=== PATIENT | male | born 1970 | race Caucasian/White ===

== ENCOUNTER 2022-11-17 08:28 | Emergency (ER) | payer BC, SELFPAY ==
[2022-11-17] VITALS (22 sets, daily range): BP systolic 122–126; BP diastolic 69–80; PULSE 42–54; RESP 11–22; TEMP 36.9; O2SAT 94–100
--- NOTE | 2022-11-17 08:30 | RT.EKG_ITS ---
APPROVED REPORT Exam: Resting ECG Reason for Exam: syncope Patient Location: E HR:47 bpm ECG Measurements Heart Rate 47 AXIS PA 173 P 51 QRSd 95 QRS 15 QT 473 T 46 QTc 419 Conclusion Sinus bradycardia...rate< 60
--- NOTE | 2022-11-17 09:00 | DI.CT_ITS ---
Exam(s) CT HEAD WO EXAM: CT HEAD WO CLINICAL HISTORY: syncope. TECHNIQUE: Imaging Protocol: Axial computed tomography images with coronal and sagittal reformatted images were created and reviewed COMPARISON: No exams were available for comparison FINDINGS: Ventricles and Extra axial spaces: Normal in size and morphology for the patient's age. There is so me asymmetry of the posterior horns of the lateral ventricles which appears to be within normal limit s of variation. Hemorrhage: None. Cerebral parenchyma: No evidence of acute infarct or mass. Midline shift: None. Brainstem/Cerebellum: Normal. Calvarium: Normal. Visualized Paranasal sinuses/Mastoids: Clear. Soft Tissues: Unremarkable. IMPRESSION: No acute intracranial process. Findings called to Matthew Smiley of the emergency department. RADIATION DOSE DELIVERED: Total DLP DATA REPOSITORY: All CT scans at this facility are submitted to the National Radiology Data Registry (NRDR) Dose Index Registry (DIR) with the [employer] ([employer]). RADIATION OPTIMIZATION: All CT scans at this facility use at least one of these dose optimization te chniques: automated exposure control; mA and/or kV adjustment per patient size (includes targeted exa ms where dose is matched to clinical indication); or iterative reconstruction.
--- NOTE | 2022-11-17 09:06 | ED.GENADUL_ITS ---
Discharge Plan Disposition Patient Disposition: Home Discharge Details Clinical Impression: Syncope due to orthostatic hypotension Primary Care Provider: None,None ED Provider: Hieu Smiley Discharge Instructions Instructions: Syncope (ED) Additional Instructions: Please continue to monitor symptoms and return immediately to the emergency department for any new or significant worsening of symptoms or further syncopal episodes. Your recent concussion and syncopal episode it is recommended that you follow-up with primary care provider especially if you do not see improvement over the next week. Referrals: Primary Care Provider [Outside] - 1 week Discharge Data Discharge Date/Time-TO BE ENTERED AT DEPARTURE: 11/17/22 13:17 Medical Decision Making Patient presenting to the emergency department for chief complaint of syncope. Patient reports that this morning he got up and went to the bathroom and had a slight headache and took some acetaminophen and laid back down. Patient then went to get back up and when he stood up he had a syncopal episode. Patient states 4 days ago he hit his head on a metal object at work and thought he was doing okay but was concerned for slight concussion. Patient states since the syncopal episode he has had some chest tightness and nausea. Patient does admit to camping this weekend and having multiple alcoholic drinks last night. Patient's only past medical history is Klinefelter syndrome. Physical exam is unremarkable, no neurodeficits, no focal findings, normal cardiac exam beyond noted bradycardia. Vital signs show no hypotension, normal respirations afebrile and O2 sat of 96% on room air. Please see physician interpretation for full interpretation of EKG but upon my review patient is in sinus bradycardia with no worrisome acute findings. We will continue to monitor Reviewed patient's labs which are unremarkable, negative D-dimer, nondetected negative troponin, normal TSH, unremarkable urinalysis. CT imaging of head showed no acute worrisome findings. Did have a slight question about an area in the right occipital but spoke also with Dr. Culp who reviewed images and also agreed no acute abnormality. Repeat troponin was also negative. Patient did have something to eat and drink and stated full resolution of headache and significant movement of chest discomfort along with no further dizziness or other symptoms. Given significantly improving symptoms with no return or worsening I do feel that this may have been an episode of orthostatic hypotension given that this occurred right after standing up with otherwise negative work-up. Will have patient monitor symptoms and follow-up as needed. After discussion of diagnosis and plan of care patient has no further needs, questions, or concerns and states clear understanding to return to the emergency department for any worsening symptoms. This documentation was generated using [employer] system, please disregard any oddities of phrase or misspellings. Imaging Data Radiologic Study: Imaging: X-Ray and CT Scan Radiologist's impression: Exam(s) PROCEDURE INFORMATION: Exam: CT Head Without Contrast Exam date and time: 11/17/2022 9:36 AM Age: 52 years old Clinical indication: Dizziness TECHNIQUE: Imaging protocol: Computed tomography of the head without contrast. Radiation optimization: All CT scans at this facility use at least one of these dose optimization techniques: automated exposure control; mA and/or kV adjustment per patient size (includes targeted exams where dose is matched to clinical indication); or iterative reconstruction. COMPARISON: No relevant prior studies available. FINDINGS: Brain: No intracranial extra-axial collection. No acute large territorial infarct. No acute intracranial hemorrhage. No midline shift. Cerebral ventricles: No ventriculomegaly. Paranasal sinuses: Visualized sinuses are unremarkable. No fluid levels. Mastoid air cells: Visualized mastoid air cells are well aerated. Bones/joints: Unremarkable. No acute fracture. Soft tissues: Unremarkable. Vasculature: Scattered atherosclerotic changes in the arterial vasculature. IMPRESSION: No acute intracranial process. ? Exam(s) PROCEDURE INFORMATION: Exam: XR Chest Exam date and time: 11/17/2022 11:41 AM Age: 52 years old Clinical indication: Other: Syncope TECHNIQUE: Imaging protocol: Radiologic exam of the chest. Views: 2 views. COMPARISON: No relevant prior studies available. FINDINGS: Lungs: Unremarkable. No consolidation. Pleural spaces: Unremarkable. No pleural effusion. No pneumothorax. Heart/Mediastinum: Unremarkable. No cardiomegaly. Bones/joints: Unremarkable. IMPRESSION: 1. ? Prominent heart and mediastinum are likely related to technique. 2. ? No acute pulmonary process. Lab Data Lab results reviewed: Yes I reviewed the patient's lab results. HPI General Mode of arrival: ambulatory . Date/Time Provider Initiated Documentation: 11/17/22 08:38 . Limitations to Documentation: no limitations . Information obtained by: patient, family and RN notes reviewed . History of Present Illness 52 year old M presents to the emergency department with the chief complaint of Syncope, described as moderate, Quality is described as aching, and is localized to the head. Patient reports no radiation. Patient started experiencing this minute(s) (30) and it has been constant. No relieving factors improve symptom(s), Other factors that worsen symptoms (Standing up) . Patient notes chest pain. General Stated Complaint: Dizzy/Sync WILMER: 3 Review of Systems Constitutional Constitutional: Denies chills, Denies fever(s), Reports headache(s) and Reports malaise Eyes Eyes: Denies change in vision ENT Ears, Nose, Mouth, and Throat: Reports headache(s) and Denies neck pain Cardiovascular Cardiovascular: Reports chest pain, Reports syncope, Denies rapid heart rate, Denies irregular heart rhythm and Denies dyspnea Respiratory Respiratory: Denies cough and Denies dyspnea Gastrointestinal Gastrointestinal: Denies abdominal pain, Reports nausea and Denies vomiting Musculoskeletal Musculoskeletal: Denies back pain and Denies neck pain Neurologic Neurologic: Reports as per HPI, Reports syncope, Reports headache(s), Denies localized weakness, Denies convulsions and Denies paresthesias PFSH All Active Problems (Updated 11/17/22 @ 13:05 by Hieu Smiley NP) Syncope due to orthostatic hypotension (Acute) Klinefelter syndrome (Acute) Social History Smoking/Tobacco Use Status: Never Smoking risk assessment performed?: Yes Drug use: Never Substance use type: does not use Exam Const General: cooperative, healthy appearing, no acute distress and well groomed Orientation: alert, awake and oriented x3 Limitations: mental status not altered HENMT Head: normal to inspection Ears: hearing grossly normal bilaterally and TM's normal bilaterally Mouth: oral mucosae normal and moist mucous membranes Throat: posterior oropharynx normal Eyes Visual Slater: normal visual slater by confrontation Alignment and Position: alignment normal Periorbital: periorbital findings normal Eyelids: eyelids normal Sclera: sclerae normal Cornea: corneas normal Pupils: PERRL EOM: EOM intact bilaterally Neck Neck: normal visual inspection, full ROM, no lymphadenopathy and no meningeal signs Carotids: normal carotid upstroke and no bruits Resp Effort & Inspection: normal respiratory effort and able to speak in complete sentences Auscultation: clear to auscultation bilaterally Cardio Jugular venous pressure: no JVD Palpation: normal PMI Rate: regular rate Rhythm: regular rhythm Heart Sounds: S1 normal and S2 normal Bruits: no carotid bruits Skin General skin exam: no rashes or lesions noted Neuro General: patient alert, patient awake, patient oriented x3, gait normal, tone normal, moves all extremities, CN's II-XI intact bilaterally and not confused Cognition: normal cognition Speech: speech normal Motor: muscle tone normal throughout, strength 5/5 throughout, no pronator drift, no movement abnormalities noted and no fasciculations Sensory Exam: no sensory deficits noted Coordination: [id number] test normal, Romberg test normal, Does not sway with eyes open, rapid alternating movement UE normal and rapid alternating movement LE normal Course Vital Signs Vital signs: Vital Signs Temperature 36.9 C 11/17/22 08:33 Pulse 54 L 11/17/22 08:33 Respiratory Rate 16 11/17/22 08:33 Blood Pressure 125/73 11/17/22 08:33 Pulse Oximetry 96 11/17/22 08:33 Temperature 36.9 C 11/17/22 08:33 Pulse 54 L 11/17/22 08:33 Respiratory Rate 18 11/17/22 08:50 Respiratory Effort Normal 11/17/22 08:56 Respiratory Depth Normal 11/17/22 08:50 Respiratory Pattern Normal 11/17/22 08:50 Blood Pressure 125/73 11/17/22 08:33 Pulse Oximetry 96 11/17/22 08:33
[2022-11-17 09:14] LABS: Abs Immature Grans 0.02 10^3/uL (0.0-0.06); Absolute Basophil Count 0.04 10^3/uL (0.0-0.2); Absolute Eosinophil Count 0.15 10^3/uL (0.0-0.7); Absolute Lymphocyte Count 1.82 10^3/uL (1.2-3.4); Absolute Monocyte Count 0.56 10^3/uL (0.1-0.8); Absolute Neutrophil Count 4.04 10^3/uL (1.2-6.7); Basophils % 0.6; Eosinophils % 2.3; HCT 44.3 % (40.0-50.0); HGB 15.1 g/dL (13.5-17.5); Immature Grans % 0.3; Lymphocytes % 27.5; MCH 31.2 pg (27.0-33.0); MCHC 34.1 % (32.0-36.0); MCV 92 fL (80-95); MPV 11.4 fL (8.0-11.0); Monocytes % 8.4; Neutrophils % 60.9; Platelet Count 202 10^3/uL (130-400); RBC 4.84 10^6/uL (4.36-5.78); RDW 12.7 % (11.8-14.1); RDW-SD 42.6 fL; WBC 6.63 10^3/uL (4.4-10.8)
[2022-11-17] MEDS: Normal Saline 1,000 ML 1000 ML IV (09:25)
[2022-11-17] MEDS: Ondansetron 4 MG/2 ML VIAL IVP (09:32)
[2022-11-17 09:38] LABS: ALT 40 U/L (16-63); AST 20 U/L (15-37); Albumin 3.8 g/dL (3.4-5.0); Alkaline Phosphatase 52 U/L (46-116); Anion Gap 6.7 mmol/L (3-11); BUN 18 mg/dL (7-18); Bilirubin, Total 0.3 mg/dL (0.2-1.0); CO2 28.3 mmol/L (21.0-32.0); Calcium 8.9 mg/dL (8.5-10.1); Chloride 106 mmol/L (98-107); Estimated GFR 90.56 (mL/min/1.73m2); Glucose 122 mg/dL (74-106); Magnesium 1.9 mg/dL (1.8-2.4); Potassium 4.2 mmol/L (3.5-5.1); Sodium 141 mmol/L (136-145); TSH 1.24 uIU/mL (0.36-3.74); Total Protein 7.2 g/dL (6.4-8.2); Troponin I < 50 ng/L (<or=60)
[2022-11-17 09:43] LABS: Bilirubin Negative (Negative); Blood Negative (Negative); Clarity Clear (Clear); Glucose Negative (Negative); Ketones Negative (Negative); Leukocyte Esterase Negative (Negative); Nitrite Negative (Negative); Urobilinogen 0.2 mg/dL (Up to 0.2); pH 5.5 (5-8)
--- NOTE | 2022-11-17 10:01 | DI.VRAD_ITS ---
PROCEDURE INFORMATION: Exam: CT Head Without Contrast Exam date and time: 11/17/2022 9:36 AM Age: 52 years old Clinical indication: Dizziness TECHNIQUE: Imaging protocol: Computed tomography of the head without contrast. Radiation optimization: All CT scans at this facility use at least one of these dose optimization techniques: automated exposure control; mA and/or kV adjustment per patient size (includes targeted exams where dose is matched to clinical indication); or iterative reconstruction. COMPARISON: No relevant prior studies available. FINDINGS: Brain: No intracranial extra-axial collection. No acute large territorial infarct. No acute intracranial hemorrhage. No midline shift. Cerebral ventricles: No ventriculomegaly. Paranasal sinuses: Visualized sinuses are unremarkable. No fluid levels. Mastoid air cells: Visualized mastoid air cells are well aerated. Bones/joints: Unremarkable. No acute fracture. Soft tissues: Unremarkable. Vasculature: Scattered atherosclerotic changes in the arterial vasculature. IMPRESSION: No acute intracranial process. Dictated and Authenticated by: Radha Chowdary MD. Ordering:OKSANA Hagen MD
[2022-11-17 10:18] LABS: D-Dimer 252 ng/mlFEU (<500)
--- NOTE | 2022-11-17 11:15 | DI.RAD_ITS ---
Exam(s) XR CHEST 2V PA LATERAL EXAM: XR CHEST 2V PA LATERAL CLINICAL HISTORY: Syncope TECHNIQUE: 2D digital imaging was performed. COMPARISON: No exams were available for comparison FINDINGS: HEART: Normal size. Aorta: Not dilated. PULMONARY VASCULATURE: Normal. LUNGS: Evaluation limited by poor pulmonary inflation. Grossly clear. PLEURAL SPACE: No pleural effusion or pneumothorax. BONE:Unremarkable for age. IMPRESSION: No acute abnormality. DATA REPOSITORY: RADIATION DOSE DELIVERED:
[2022-11-17] MEDS: Ketorolac 15 MG/ML VIAL IVP (11:35)
--- NOTE | 2022-11-17 11:49 | DI.VRAD_ITS ---
PROCEDURE INFORMATION: Exam: XR Chest Exam date and time: 11/17/2022 11:41 AM Age: 52 years old Clinical indication: Other: Syncope TECHNIQUE: Imaging protocol: Radiologic exam of the chest. Views: 2 views. COMPARISON: No relevant prior studies available. FINDINGS: Lungs: Unremarkable. No consolidation. Pleural spaces: Unremarkable. No pleural effusion. No pneumothorax. Heart/Mediastinum: Unremarkable. No cardiomegaly. Bones/joints: Unremarkable. IMPRESSION: 1. Prominent heart and mediastinum are likely related to technique. 2. No acute pulmonary process. Dictated and Authenticated by: Radha Chowdary MD. Ordering:OKSANA Hagen MD
[2022-11-17 12:22] LABS: Troponin I < 50 ng/L (<or=60)
== END 2022-11-17 13:17 | disposition home or self-care (01) ==
PROVIDERS: Emergency Provider Nurse Practitioner Family
DX: R55 Syncope and collapse (principal)
CPT/HCPCS: 36415; 80053; 93005; 96361; 96374; 99284; 70450; 71046; 81003; 83735; 84443; 84484; 85025; 85379; 93010; 99283; J1885; J2405